=== PATIENT | female | born 1980 | race Two or more races ===

== ENCOUNTER 2019-05-25 05:59 | Day surgery (SDC) | payer MEDICAID ==
[2019-05-24 15:13] LABS: BASOPHILS # (AUTO) 0.1 X10'3 (0-0.2); BASOPHILS % (AUTO) 0.7 % (0-1); EOSINOPHILS % (AUTO) 0.5 % (0-6); LYMPHOCYTES # (AUTO) 2.6 X10'3 (1.1-4.8); LYMPHOCYTES % (AUTO) 28.5 % (21-51); MEAN CORPUSCULAR HEMOGLOBIN 31.7 PG (27.0-31.0); MEAN CORPUSCULAR HGB CONC 34.4 g/dL (33.0-36.5); MEAN CORPUSCULAR VOLUME 92.2 FL (78-98); MEAN PLATELET VOLUME 8.4 FL (7.4-10.4); MONOCYTES # (AUTO) 0.8 X10'3 (0-0.9); MONOCYTES % (AUTO) 8.7 % (2-12); NEUTROPHILS # (AUTO) 5.6 X10'3 (1.8-7.7); NEUTROPHILS % (AUTO) 61.6 % (42-75); PRE OP HEMATOCRIT 43.5 % (35.0-45.0); PRE OP PLATELET COUNT 309 X10'3 (140-440); RED BLOOD COUNT 4.72 X10'6 (4.20-5.60)
[2019-05-24 15:15] LABS: ALBUMIN 3.5 G/DL (3.4-5.0); ALBUMIN/GLOBULIN RATIO 0.9 (1.1-1.5); ALKALINE PHOSPHATASE 74 IU/L (46-116); BLOOD UREA NITROGEN 15 MG/DL (7-18); BUN/CREATININE RATIO 15.3 (6.6-38.0); CALCIUM 8.7 MG/DL (8.5-10.1); CHLORIDE 109 MMOL/L (99-107); CREATININE 0.98 MG/DL (0.40-0.90); PRE OP ALT 28 U/L (30-65); PRE OP ANION GAP 10 (8-16); PRE OP AST 22 U/L (10-37); PRE OP BILIRUB, TOTAL 0.3 MG/DL (0.0-1.0); PRE OP GLUCOSE 85 MG/DL (70-104); PRE OP POTASSIUM 3.8 MMOL/L (3.4-5.1); PRE OP SODIUM 142 MMOL/L (135-145); TOTAL CARBON DIOXIDE 23.4 MMOL/L (24-32); TOTAL PROTEIN 7.6 G/DL (6.4-8.2); eGFR 64 ML/MIN
[~2019-05-25] VITALS: Ht 160 cm; Wt 87.1 kg
[~2019-05-25 05:59] MED LIST: NO HOME MEDS; famotidine 20mg tablet PO ONE; ringers solution, lacted 1,000 ML IV SCH
[2019-05-25] MEDS ORDERED: cefazolin/dext.iso 2gm/50ml 50 ML IV ONE (06:00)
[2019-05-25 06:10] VITALS: BP 102/69
[2019-05-25] MEDS ORDERED: BUPIVAcaine/PF 2.5mg/ml (0.25%) 10ml vial ONE (06:35)
[2019-05-25] MEDS ORDERED: LIDOcaine 0.5% (5mg/ml) 50ml vial ONE (08:04)
[2019-05-25] MEDS ORDERED: midazolam 2 mg/2 ml injection ONE ×2 (08:09→08:23)
[2019-05-25] MEDS ORDERED: fentaNYL/PF 50MCG/1 ML 2ML syringe ONE (08:09)
[2019-05-25 08:39] VITALS: BP 118/84
--- NOTE | 2019-05-25 08:39 | NUR ---
ARRIVED IN PACU VIA GURNEY FROM OR. AWAKE ALERT. NO PAIN. REPORT RECEIVED FROM DR Betancourt ON ARRIVAL.
[2019-05-25 08:49] VITALS: BP 113/75
[2019-05-25 08:59] VITALS: BP 120/75
--- NOTE | 2019-05-25 09:09 | NUR ---
UP STEADY ON FEET. DRESSED WITHOUT ASSISTANCE. REVIEWED DISCHARGE WITH PT AND
--- NOTE | 2019-05-25 09:19 | NUR ---
TO CAR ACCOMPANIED BY VOLUNTEER WITHOUT INCIDENT.
== END 2019-05-25 09:19 | disposition home or self-care (01) ==
LOC: PAS 05:59
PROVIDERS: ATTEND Orthopaedic Surgery Hand Surgery
DX: D48.1 Neoplasm of uncertain behavior of connective and other soft tissue (principal); F17.200 Nicotine dependence, unspecified, uncomplicated; Z79.899 Other long term (current) drug therapy
CPT/HCPCS: 26116; 36415; 80053; 82948; 85025; A6222; J2001; J2250; J3010; J3490; J7120; A4215; A4618; A6449; A7000